=== PATIENT | male | born 1955 | race Caucasian/White ===

== ENCOUNTER → 2016-09-17 | Outpatient (CLI) | payer BC ==
[~2016-09-17] MED LIST: ATOR20TA66 PO; [UNRECOGNIZED DRUG - CODE] PO
== END ==
LOC: PREOP 05:41
PROVIDERS: ATTEND Internal Medicine
DX: Z01.818 Encounter for other preprocedural examination (principal); Z12.11 Encounter for screening for malignant neoplasm of colon; Z80.0 Family history of malignant neoplasm of digestive organs

== ENCOUNTER 2016-09-19 07:08 | Day surgery (SDC) | payer BC, OTHER ==
[~2016-09-19] VITALS: Ht 188 cm; Wt 97.5 kg
[2016-09-19] MEDS ORDERED: 1/2 NS IV SOLUTION 1,000 ML IV STA (07:22)
[2016-09-19] MEDS ORDERED: FLUMAZENIL (ROMAZICON) 0.1 MG/ML 5 ML VIAL INJ PRN (07:30)
[2016-09-19] MEDS ORDERED: NALOXONE 0.4 MG/ML 1 ML (NARCAN) VIAL IVP PRN (07:30)
[2016-09-19] MEDS ORDERED: LIDOCAINE JELLY 2% (XYLOCAINE) 5 ML TUBE MM PRN (07:30)
[2016-09-19] MEDS ORDERED: MIDAZOLAM 2 MG/2 ML (VERSED) VIAL IVP PRN (07:30)
[2016-09-19 07:39] VITALS: BP 141/95
[2016-09-19] MEDS ORDERED: [UNRECOGNIZED DRUG - CODE] PO (07:44)
[2016-09-19] MEDS ORDERED: ATOR20TA66 PO (07:45)
[2016-09-19] MEDS ORDERED: fentaNYL INJECTION 100 MCG/2 ML AMP ONE ×2 (08:13)
[2016-09-19] MEDS ORDERED: MIDAZOLAM 2 MG/2 ML (VERSED) VIAL ONE ×2 (08:13)
[2016-09-19] MEDS ORDERED: LIDOCAINE JELLY 2% (XYLOCAINE) 5 ML TUBE ONE (08:14)
--- NOTE | 2016-09-19 08:26 | Pre-Op Note & Conscious Sedat ---
Pre-Operative Progress Note H&P Reviewed The H&P was reviewed, patient examined and no changes noted. Date H&P Reviewed: September 19, 2016 Time H&P Reviewed: 07:55 Conscious Sedation Pre-Proced ASA Class: 2 Airway Mallampati Classification: ([place] appropriate class) I. II. III, IV Lungs Heart ASA score ASA 1: a normal healthy patient ASA 2: a patient with a mild systemic disease (mid diabetes, controlled hypertension, obesity ASA 3: a patient with a severe systemic disease that limits activity (angina , COPD, prior Myocardial infarction) ASA 4: a patient with an incapacitating disease that is a constant threat to life (CHF, renal failure) ASA 5: a moribund patient not expected to survive 24 hrs. (ruptured aneurysm) ASA 6: a declared brain patient whose organs are being harvested. For emergent operations, add the letter E after the classification Grade 2 Sedation Plan: Analgesia, Amnesia, Plan communicated to team members, Discussed options with patient/fam, Discussed risks with patient/fam Note The patient is an appropriate candidate to undergo the planned procedure, sedation, and anesthesia. The patient immediately re-assessed prior to indication. ADELA VERMA MD September 19, 2016 08:26
[2016-09-19] MEDS: fentaNYL INJECTION 100 MCG/2 ML AMP IVP PRN ×2 (08:35→08:37)
[2016-09-19 09:20] VITALS: BP 129/81
[2016-09-19 09:40] VITALS: BP 141/62
[2016-09-19 09:50] VITALS: BP 141/62
--- NOTE | 2016-09-19 13:46 | OPERATIVE REPORT ---
DATE OF SERVICE: PROCEDURE: Colonoscopy. INDICATION FOR THE PROCEDURE: Screening. He is deemed to be of higher than average risk as his mother was diagnosed with colon cancer in her mid-80s. The patient is placed in the left lateral decubitus position. Prior to undergoing colonoscopy, a digital rectal evaluation was performed. Anal sphincter tone was normal. The perianal reflexes intact. Digital evaluation was compatible with mild BPH without nodularity. No tenderness was reported. No other abnormalities were noted during inspection of the anal canal and distal rectal vault. The colonoscope was then inserted into the rectum under direct visualization, advanced to the cecum. The cecum was identified by identification of the ileocecal valve. Photographic documentation was obtained. Careful inspection was made as the colonoscope was withdrawn. The patient tolerated the procedure well. In the colon, the prep was good. FINDINGS: There was no evidence of internal or external hemorrhoids. The rectum was unremarkable. Present at the rectosigmoid junction was a diminutive 5 mm sessile polyp. It was photografted and biopsied and ablated with no subsequent blood loss. The remainder of the sigmoid colon, descending colon, transverse colon, ascending color, cecum were unremarkable. No diverticulum were noted and no further evidence for neoplasia was identified. 1. One diminutive polyp was removed from the rectosigmoid junction as noted above via hot forceps. As long as there are no surprises on histopathology report, we will advocate repeat screening colonoscopy in 5 years. 2. Mild BPH on digital evaluation. No evidence for nodularity or tenderness was noted. Job ID: [id number] DocumentID: [id number] Dictated Date: 09/19/2016 10:56:20 Glass Bulb Machine Adjuster Date: 09/19/2016 13:46:01 Dictated By: ADELA VERMA MD
== END 2016-09-19 09:50 | disposition home or self-care (01) ==
LOC: ENDO 07:08
PROVIDERS: ATTEND Internal Medicine
DX: Z12.11 Encounter for screening for malignant neoplasm of colon (principal); K62.1 Rectal polyp; Z80.0 Family history of malignant neoplasm of digestive organs; N40.0 Benign prostatic hyperplasia without lower urinary tract symptoms

== ENCOUNTER 2020-01-23 13:45 | Outpatient (RCR) | payer BC | END 2020-01-23 15:10 | disposition home or self-care (01) | DX: M51.37 Other intervertebral disc degeneration, lumbosacral region (principal); Z87.81 Personal history of (healed) traumatic fracture ==

== ENCOUNTER 2020-04-24 09:00 | Outpatient (RCR) | payer BC | END 2020-05-01 09:27 | disposition home or self-care (01) | PROVIDERS: ATTEND Neurological Surgery | DX: M54.16 Radiculopathy, lumbar region (principal); Z87.81 Personal history of (healed) traumatic fracture ==

== ENCOUNTER 2020-05-24 09:14 | Outpatient (RCR) | payer BC, MEDICARE | END 2020-05-24 15:35 | disposition home or self-care (01) | PROVIDERS: ATTEND Neurological Surgery | DX: M54.16 Radiculopathy, lumbar region (principal); Z87.81 Personal history of (healed) traumatic fracture ==

== ENCOUNTER → 2021-05-27 | Outpatient (RCR) | payer MEDICARE | END | disposition home or self-care (01) | PROVIDERS: ATTEND Neurological Surgery | DX: M48.061 Spinal stenosis, lumbar region without neurogenic claudication (principal); M54.16 Radiculopathy, lumbar region ==

== ENCOUNTER → 2021-06-24 | Outpatient (RCR) | payer MEDICARE | END | disposition home or self-care (01) | PROVIDERS: ATTEND Neurological Surgery | DX: M48.061 Spinal stenosis, lumbar region without neurogenic claudication (principal); M54.16 Radiculopathy, lumbar region ==

== ENCOUNTER 2021-07-17 08:25 | Outpatient (RCR) | payer MEDICARE | END 2021-07-17 10:45 | disposition home or self-care (01) | PROVIDERS: ATTEND Neurological Surgery | DX: M48.061 Spinal stenosis, lumbar region without neurogenic claudication (principal); M54.16 Radiculopathy, lumbar region ==